=== PATIENT | male | born 1950 | race Caucasian/White ===

== ENCOUNTER 2017-06-23 09:25 | Observation (INO) | payer MEDICAID, OTHER ==
[~2017-06-23] VITALS: Ht 170.2 cm; Wt 69.9 kg
[~2017-06-23 09:25] MED LIST: ALLO300T46; AMLO-147; ASPI-664; CLOP75TA19; CYAN500T46; ESOM40CA; EZET1TAB44; FERR28TA; FURO40TA4; METF500T4; METO-53; MULT-342; NCN500CCR; POTA8TAB2; RAMI10CA35
[2017-06-23 10:02] VITALS: TEMP 98.1
[2017-06-23 10:30] LABS: BASOPHILS % 0.3 % (0.0-2.0); EOSINOPHILS % 0.3 % (0.0-7.0); HEMATOCRIT 34.4 % (42.0-52.0); HEMOGLOBIN 11.1 g/dl (14.0-18.0); LYMPHOCYTES # 0.6 10^3/ul (0.8-2.9); LYMPHOCYTES % 16.9 % (15.0-51.0); MEAN CORPUSCULAR HEMOGLOBIN 32.9 pg (29.0-33.0); MEAN CORPUSCULAR HGB CONC 32.3 g/dl (32.0-37.0); MEAN CORPUSCULAR VOLUME 102.1 fl (82.0-101.0); MEAN PLATELET VOLUME 11.1 fl (7.4-10.4); MONOCYTE # 0.4 10^3/ul (0.3-0.9); MONOCYTES % 11.4 % (0.0-11.0); NEUTROPHIL # 2.6 10^3/ul (1.6-7.5); NEUTROPHILS % 70.8 % (39.0-77.0); PLATELET COUNT 112 10^3/UL (140-415); RED BLOOD COUNT 3.37 10^6/ul (4.70-6.10); RED CELL DISTRIBUTION WIDTH 16.5 % (11.5-14.5); WHITE BLOOD COUNT 3.7 10^3/ul (4.8-10.8)
[2017-06-23] MEDS ORDERED: AZITHROMYCIN 500MG/NS (PMX) 250 ML IVPB ONE (10:30)
[2017-06-23] MEDS ORDERED: ALBUTEROL 0.083% (NEB) 2.5 MG/3 ML AMP HHN STA (10:30)
[2017-06-23] MEDS ORDERED: IPRATROPIUM (NEB) 0.5 MG/2.5 ML AMP HHN ONE (10:30)
[2017-06-23] MEDS ORDERED: CEFTRIAXONE 1 GM/50 ML (PMX) 50 ML IVPB ONE (10:30)
[2017-06-23 10:48] LABS: CALCIUM 9.1 mg/dl (8.4-10.2); CREATININE 1.6 mg/dl (0.61-1.24); POTASSIUM 5.1 mmol/L (3.5-5.1)
--- NOTE | 2017-06-23 10:50 | RADRPT ---
PROCEDURE: XR Chest. CLINICAL INDICATION: SOB TECHNIQUE: Frontal chest x-ray was obtained. COMPARISON: Chest x-ray September 14, :13 FINDINGS: There is cardiomegaly. Mediastinum is not widened. No hilar masses seen. There is mild central pulmo nary vascular congestion. No infiltrate is seen. There is no pleural effusion or pneumothorax. IMPRESSION: cardiomegaly with mild central pulmonary vascular congestion . .Garo Mccall MD, MD Date Time Electronically viewed and signed by .Garo Mccall MD, on 06/23/2017 10:49 .A/
[2017-06-23] MEDS ORDERED: ALLO300T2 PO (10:59)
[2017-06-23] MEDS ORDERED: METF-406 PO (10:59)
[2017-06-23] MEDS ORDERED: CARV25TA79 PO (10:59)
[2017-06-23] MEDS ORDERED: LORA0.5T PO (10:59)
[2017-06-23] MEDS ORDERED: CLOP75TA27 PO (11:00)
[2017-06-23] MEDS ORDERED: FURO20TA3 PO (11:00)
[2017-06-23] MEDS ORDERED: SIMV40TA2 PO (11:00)
[2017-06-23] MEDS ORDERED: BENA40TA41 PO (11:00)
[2017-06-23] MEDS ORDERED: NEO/5DRO22 RIGHT EYE (11:01)
[2017-06-23] MEDS ORDERED: ISOS30TA5 PO (11:01)
[2017-06-23] MEDS ORDERED: ASPI81TA3 PO (11:01)
[2017-06-23] MEDS ORDERED: POTA8TAB2 PO (11:01)
[2017-06-23] MEDS ORDERED: ESOM40CA PO (11:02)
[2017-06-23] MEDS ORDERED: OMEG1CAP2 PO (11:02)
--- NOTE | 2017-06-23 13:00 | RADRPT ---
PROCEDURE: CT Chest without contrast. CLINICAL INDICATION: Shortness of breath TECHNIQUE: CT scan of the chest without contrast was performed on a multidetector high-resolution CT scanner. Coronal and sagittal reformatted images were obtained from the axial source images. The total exam CTDI equals 11 mGy and the total exam DLP equals 478 mGy-cm. One or more of the followi ng dose reduction techniques were used: Automated exposure control, Adjustment of the mA and/or kV a ccording to patient size, and/or use of iterative reconstruction technique. DICOM images are availab le. COMPARISON: Chest x-ray earlier today FINDINGS: Small to moderate bilateral pleural effusions with compressive atelectasis of the lower lungs. Patchy micronodularity in the left upper lobe. Scattered clustered mediastinal lymph nodes. Marked cardiomegaly with small to moderate pericardial effusion. The visualized upper abdomen is grossly unremarkable. Degenerative changes to the thoracic spine are seen. Multinodular thyroid gland with thyroid calcifications. IMPRESSION: Small to moderate bilateral pleural effusions with compressive atelectasis of the lower lungs. Marked cardiomegaly with small to moderate pericardial effusion. Patchy micronodularity in the left upper lobe suggestive of superimposed infection/inflammation. Scattered clustered mediastinal lymph nodes are nonspecific but possibly reactive. RPTAT: AA .Joon Major MD, MD Date Time Electronically viewed and signed by .Joon Major MD, on 06/23/2017 12:59 .T/
[2017-06-23] MEDS ORDERED: HYDROCODONE/APAP (5/325) TAB PO PRN (13:30)
[2017-06-23] MEDS ORDERED: DOCUSATE SODIUM 100 MG CAP PO PRN (13:30)
[2017-06-23] MEDS ORDERED: LORAZEPAM 0.5 MG TAB PO PRN (13:30)
[2017-06-23] MEDS ORDERED: ONDANSETRON 4 MG INJ IV PRN ×2 (13:30)
[2017-06-23] MEDS ORDERED: FUROSEMIDE 40 MG INJ IV ONE (13:30)
[2017-06-23] MEDS ORDERED: NACL 0.9% 3 ML SYG IV SCH (13:30)
[2017-06-23] MEDS ORDERED: BISACODYL 10 MG SUPP PR PRN (13:30)
[2017-06-23] MEDS ORDERED: ACETAMINOPHEN 325 MG TAB PO PRN ×2 (13:30)
[2017-06-23] MEDS ORDERED: NITROGLYCERIN (SL) 0.4 MG TAB SL PRN (13:30)
[2017-06-23] MEDS ORDERED: MAGNESIUM HYDROXIDE 30ML CUP PO PRN (13:30)
--- NOTE | 2017-06-23 13:56 | ERD ---
ER Documentation Chief Complaint Chief Complaint COUGH X 3 WEEKS ,SOB, SEND BY PMD R/O PNA HPI Patient is a 67-year-old male with diabetes and hypertension as well as CHF who presents with cough for a few weeks. The patient saw Dr. Cr yesterday and had labs and a chest x-ray which showed pneumonia. The patient was sent to the hospital today for admission. The patient has had bilateral feet swelling for 1 month and is told he has a "weak heart". He was given penicillin yesterday. He admits to fevers. He has had no admissions in the last 3 months. ROS All systems reviewed and are negative except as per history of present illness. Medications Home Meds Reported Medications Esomeprazole Mag Trihydrate (Nexium) 40 Mg Capsule.dr, 40 MG PO DAILY, #30 CAP 06/23/17 [place]-3 Acid Ethyl Esters (Lovaza) 1 Gm Capsule, 2 GM PO DAILY, CAP 06/23/17 Neomycin/Polymyxin/Dexameth* (Maxitrol*) 5 Ml Drops, 2 DROP RIGHT EYE DAILY, EA 06/23/17 Aspirin* (Aspirin* Chew) 81 Mg Tab.chew, 81 MG PO DAILY, TAB.CHEW 06/23/17 Potassium Chloride* (Klor-Con*) 8 Meq Tablet.sa, 8 MEQ PO DAILY, TAB 06/23/17 Isosorbide Mononitrate* (Isosorbide Mononitrate*) 30 Mg Tab.er.24h, 30 MG PO DAILY, TAB 06/23/17 Clopidogrel Bisulfate (Clopidogrel) 75 Mg Tablet, 75 MG PO DAILY, #30 TAB 06/23/17 Benazepril Hcl* (Benazepril Hcl*) 40 Mg Tablet, 40 MG PO DAILY, #30 TAB 06/23/17 Furosemide* (Furosemide*) 20 Mg Tablet, 20 MG PO DAILY, #60 TAB 06/23/17 Simvastatin* (Zocor*) 40 Mg Tablet, 40 MG PO QHS, #30 TAB 06/23/17 Lorazepam* (Lorazepam*) 0.5 Mg Tablet, 0.5 MG PO HS Y for ANXIETY, TAB 06/23/17 Metformin Hcl* (Metformin Hcl* ER) 1,000 Mg Tab.er.24, 1000 MG PO DAILY, #30 TAB 06/23/17 Allopurinol* (Allopurinol*) 300 Mg Tablet, 300 MG PO DAILY, TAB 06/23/17 Carvedilol* (Carvedilol*) 25 Mg Tablet, 25 MG PO BID, #60 TAB 06/23/17 Discontinued Reported Medications Multivitamins W-Minerals (Icaps Plus) 1 Tab Tablet 11/25/10 Cyanocobalamin* (Vitamin B12*) 500 Mcg Tab 11/25/10 Clopidogrel Bisulfate (Plavix) 75 Mg Tablet 11/25/10 Potassium Chloride* (Klor-Con*) 8 Meq Tablet.sa 11/25/10 Ferrous Sulfate (Ferrous Sulfate) 1 Tab Tablet 11/25/10 Amlodipine Besylate* (Amlodipine Besylate*) 10 Mg Tablet 11/25/10 Metformin* (Glucophage*) 500 Mg Tab 11/02/10 Metoprolol (Lopressor) 50 Mg Tablet 11/02/10 Aspirin* (Aspirin* (EC)) 81 Mg Tablet. 11/02/10 Niacin* (Niaspan*) 500 Mg Tablet.sa 10/30/10 Furosemide* (Furosemide*) 40 Mg Tablet 10/30/10 Allopurinol* (Zyloprim*) 300 Mg Tablet 10/30/10 Esomeprazole Mag Trihydrate (Nexium) 40 Mg Capsule. 10/30/10 Ezetimibe-Simvastatin (Vytorin) 1 Tab Tablet 10/30/10 Ramipril (Altace) 10 Mg Capsule 10/30/10 Amlodipine Besylate* (Amlodipine Besylate*) 10 Mg Tablet 10/30/10 Allergies Allergies: Coded Allergies: No Known Allergy (Unverified , 06/23/17) PMhx/Soc History of Surgery: No Anesthesia Reaction: No Hx Neurological Disorder: No Hx Respiratory Disorders: No Hx Cardiac Disorders: Yes (Heart problems) Hx Psychiatric Problems: No Hx Miscellaneous Medical Probl: Yes (Diabetes ) Hx Alcohol Use: No Hx Substance Use: No Hx Tobacco Use: No Smoking Status: Never smoker FmHx Family History: diabetes Physical Exam Vitals Vital Signs Date Time Temp Pulse Resp B/P Pulse Ox O2 Delivery O2 Flow Rate FiO2 06/23/17 11:14 75 18 96 21 06/23/17 10:02 98.1 82 20 120/65 99 Room Air 06/23/17 09:27 98.1 78 20 120/65 99 Physical Exam Const: No acute distress Head: Atraumatic Eyes: Normal Conjunctiva ENT: Normal External Ears, Nose and Mouth. Neck: Full range of motion..~ No meningismus. Resp: Decreased breath sounds bilaterally Cardio: Regular rate and rhythm, no murmurs Abd: Soft, non tender, non distended. Normal bowel sounds Skin: No petechiae or rashes Back: No midline or flank tenderness Ext: 1 Plus pitting edema bilaterally Neur: Awake and alert Psych: Normal Mood and Affect Result Diagram: 06/23/17 1008 06/23/17 1008 Results 24 hrs Laboratory Tests Test 06/23/17 10:05 06/23/17 10:08 B-Type Natriuretic Peptide 12467QQ/ML White Blood Count 3.710^3/ul Red Blood Count 3.3710^6/ul Hemoglobin 11.1g/dl Hematocrit 34.4% Mean Corpuscular Volume 102.1fl Mean Corpuscular Hemoglobin 32.9pg Mean Corpuscular Hemoglobin Concent 32.3g/dl Red Cell Distribution Width 16.5% Platelet Count 81741^3/UL Mean Platelet Volume 11.1fl Neutrophils % 70.8% Lymphocytes % 16.9% Monocytes % 11.4% Eosinophils % 0.3% Basophils % 0.3% Nucleated Red Blood Cells % 0.0/100WBC Neutrophils # 2.610^3/ul Lymphocytes # 0.610^3/ul Monocytes # 0.410^3/ul Eosinophils # 0.010^3/ul Basophils # 0.010^3/ul Nucleated Red Blood Cells # 0.010^3/ul Sodium Level 141mmol/L Potassium Level 5.1mmol/L Chloride Level 104mmol/L Carbon Dioxide Level 26mmol/L Anion Gap 16 Blood Urea Nitrogen 44mg/dl Creatinine 1.60mg/dl Glucose Level 150mg/dl Lactic Acid Level 1.3mmol/L Calcium Level 9.1mg/dl Current Medications Medications (Trade) Dose Ordered Sig/Rob Route PRN Reason Start Time Stop Time Status Last Admin Dose Admin Ceftriaxone Sodium 50 ml @ 100 mls/hr ONCE ONCE IVPB 06/23/17 10:30 06/23/17 10:59 DC 06/23/17 10:21 Azithromycin (Zithromax 500mg/ NS (Pmx)) 250 ml @ 250 mls/hr ONCE ONCE IVPB 06/23/17 10:30 06/23/17 11:29 DC 06/23/17 11:02 Albuterol (Proventil 0.083% (Neb)) 5 mg ONCE STAT N 06/23/17 10:30 06/23/17 10:31 DC 06/23/17 11:12 Ipratropium [place] (Atrovent 0.02% (Neb)) 0.5 mg ONCE ONCE N 06/23/17 10:30 06/23/17 10:31 DC 06/23/17 11:12 Ondansetron HCl (Zofran Inj) 4 mg ER BRIDGE PRN IV NAUSEA AND/OR VOMITING 06/23/17 13:30 06/24/17 13:29 Acetaminophen (Tylenol Tab) 650 mg ER BRIDGE PRN PO MILD PAIN/FEVER 06/23/17 13:30 06/24/17 13:29 Furosemide (Lasix) 40 mg ONCE ONCE IV 06/23/17 13:30 06/23/17 13:31 DC Allopurinol (Zyloprim) 300 mg DAILY PO 06/24/17 09:00 UNV Aspirin (Aspirin) 81 mg DAILY PO 06/24/17 09:00 UNV Carvedilol (Coreg) 25 mg BID PO 06/23/17 21:00 UNV Clopidogrel Bisulfate (plaVIX) 75 mg DAILY PO 06/24/17 09:00 UNV Isosorbide Mononitrate (Imdur) 30 mg DAILY PO 06/24/17 09:00 UNV Lorazepam (Ativan) 0.5 mg HS PRN PO ANXIETY 06/23/17 13:30 UNV Neomycin/ Polymyxin/ Dexamethasone (Maxitrol Oph Susp) 2 drop DAILY RIGHT EYE 06/24/17 09:00 UNV Miscellaneous Information 40 mg DAILY PO 06/24/17 09:00 UNV Miscellaneous Information 2 gm DAILY PO 06/24/17 09:00 UNV Miscellaneous Information 40 mg QHS PO 06/23/17 21:00 UNV IV Flush (NS 3 ml) 3 ml PER PROTOCOL IV 06/23/17 13:30 UNV Ondansetron HCl (Zofran Inj) 4 mg Q6H PRN IV NAUSEA AND/OR VOMITING 06/23/17 13:30 UNV Furosemide (Lasix) 40 mg BID DIURETICS IV 06/24/17 06:00 UNV Nitroglycerin (Nitroglycerin (Sl Tab) 0.4 Mg) 1 tab Q5M PRN SL CHEST PAIN 06/23/17 13:30 UNV Acetaminophen (Tylenol Tab) 650 mg Q6H PRN PO PAIN LEVEL 1-3 OR FEVER 06/23/17 13:30 UNV Acetaminophen/ Hydrocodone Bitart ([place] (5/325)) 1 tab Q6H PRN PO PAIN LEVEL 4-6 06/23/17 13:30 UNV Docusate Sodium (Colace) 100 mg Q12H PRN PO CONSTIPATION 06/23/17 13:30 UNV Magnesium Hydroxide (Milk Of Mag) 30 ml DAILY PRN PO CONSTIPATION 06/23/17 13:30 UNV Bisacodyl (Dulcolax Supp) 10 mg DAILY PRN MS CONSTIPATION 06/23/17 13:30 UNV Enoxaparin Sodium (Lovenox) 40 mg DAILY SC 06/24/17 09:00 UNV Levofloxacin (Levaquin) 750 mg DAILY@06 GTB 06/24/17 06:00 UNV Miscellaneous Information (* Miscellaneous Pharmacy Order) Discontinue current oral sulfonylur... ONCE ONCE XX 06/23/17 14:00 06/23/17 14:01 UNV Diagnostic Test (Pha) (Accu-Chek) 1 ea 02 XX 06/24/17 02:00 UNV Miscellaneous Information (* Miscellaneous Pharmacy Order) HYPOGLYCEMIA PROTOCOL w... ONCE ONCE XX 06/23/17 14:00 06/23/17 14:01 UNV Insulin Aspart (Novolog Insulin Pen) NOVOLOG *MODERATE* ALGORITHM WITH MEALS BEDTIME SC 06/23/17 18:00 UNV Miscellaneous Information (* Miscellaneous Pharmacy Order) Discontinue all previ... ONCE ONCE XX 06/23/17 14:00 06/23/17 14:01 UNV Procedures/MDM EKG pending at this time. Chest x-ray shows possible pneumonia per radiology. CT chest shows pneumonia per radiology. Patient is a 67-year-old male who presents with shortness of breath. He was found to have both pneumonia and CHF. The patient will be admitted to a telemetry observation stay under the care of Dr. Negron from [facility]. The patient will be admitted to a telemetry bed. He was given ceftriaxone and Zithromax for community associated pneumonia. Lactic acid is normal at this point I doubt sepsis. Departure Diagnosis: Primary Impression: Pneumonia Pneumonia type: due to unspecified organism Laterality: unspecified laterality Lung location: unspecified part of lung Qualified Code: J18.9 - Pneumonia due to infectious organism, unspecified laterality, unspecified part of lung Additional Impressions: Shortness of breath CHF (congestive heart failure) Congestive heart failure type: unspecified congestive heart failure type Congestive heart failure chronicity: acute Qualified Code: I50.9 - Acute congestive heart failure, unspecified congestive heart failure type Condition: DANICA Vicente MD Jun 23, 2017 13:56
--- NOTE | 2017-06-23 14:52 | HP ---
Date/Time of Note Date/Time of Note DATE: 06/23/17 TIME: 14:37 Assessment/Plan VTE Prophylaxis VTE Prophylaxis Intervention: LMWH Assessment/Plan Assessment/Plan 67-year-old male with: 1. Respiratory distress secondary to CHF exacerbation and possible CAP, progressive over the past 2-4 weeks, patient denies cough, he has been afebrile. CT chest noncontrast showing mostly volume overload and also left upper lobe infiltrate that may be consistent with CAP Diuresis with Lasix, strict I/Os, daily weight Rule out acute coronary syndrome, Telemetry monitoring, 2D echocardiogram pending Levaquin for CAP 2. Possible community-acquired pneumonia with left upper lobe infiltrate on CAT scan of the chest, patient received Rocephin and azithromycin in the ER, will put on Levaquin with planned treatment for 7 days 3. Acute kidney injury on chronic kidney disease likely, renal function is fairly the same compared to admission in 2013, patient needs diuresis. We will continue to monitor his renal function while on Lasix. Check renal ultrasound. 4. Diabetes mellitus, episodes of hypoglycemia at home, DC metformin for now. Sliding scale insulin, check hemoglobin A1c in a.m. 5. Coronary artery disease, known ischemic cardiomyopathy and congestive heart failure with systolic dysfunction. Cardiac workup on this admission and repeat echocardiogram for further disease management. Continue outpatient medications for now 6. Congestive heart failure, systolic dysfunction with acute exacerbation. See #1 7. Hyperlipidemia: Check fasting lipid panel, continue statin therapy. 8. GERD: Continue PPI Prophylaxis: PPI for GI prophylaxis, Lovenox for DVT prophylaxis Disposition: Admit to telemetry observation, diuresis, monitor respiratory status, follow-up on 2D echocardiogram results, cardiology consult as needed. Son at bedside and patient have been updated regarding plan of care. HPI/ROS Admit Date/Time Admit Date/Time Hx of Present Illness Chief complaint: Shortness of breath History of presenting illness: This is a 67-year-old male with known coronary artery disease and ischemic cardiomyopathy, ejection fraction of 20% in 2013, diabetes mellitus, hyperlipidemia, hypertension who was sent to the emergency department by his primary care physician due to shortness of breath for the past 2 weeks. The patient's son is at the bedside and able to give additional information, patient himself reports shortness of breath over the past 2 weeks and according to the son he has been having some dyspnea on exertion and it decreased exercise tolerance for the past month. Patient denies any chest pain , nausea, vomiting, fevers. He even denies cough. However they have noted that he was having increasing lower extremity edema for the past 2-4 weeks. It is unclear if the patient is compliant with diet and salt intake. He seems to be more compliant with blood sugar check and his diabetes medication to a point where he is noted to have hypoglycemic events. He does have chronic kidney disease, he has seen a credit collection specialist recently and was told that his renal function was stable. He reports that he is furosemide was decreased down to 20 mg few months ago. He saw his outpatient atmospheric physicist 4 months ago and was told he was stable and to continue his current medications. On exam patient is found to be in volume overload with lower extremity edema. Chest x-ray at first was showing possible signs of congestive heart failure. BNP is elevated, CAT scan of the chest is showing pleural effusions and small to moderate pericardial effusion. Patient is being admitted to telemetry on observation for diuresis and further cardiac evaluation. He is CAT scan of the chest also showed a left upper lobe possible pneumonia, he will be maintained on antibiotics for community-acquired pneumonia. Patient denies any other cardiac symptoms, gastrointestinal symptoms, genitourinary symptoms. He denies palpitation or dizziness. ROS Constitutional: no complaints Eyes: no complaints ENT: no complaints Respiratory: shortness of breath Cardiovascular: edema, no complaints Gastrointestinal: no complaints Genitourinary: no complaints Musculoskeletal: no complaints Neurologic: no complaints Lymphatic: no complaints Psychological: no complaints PMH/Family/Social Past Medical History Ischemic cardiomyopathy, ejection fraction in 2013 was 20% Medical History: congestive heart failure (Systolic dysfunction), coronary artery disease, diabetes, high cholesterol, hypertension Past Surgical History Status post angiogram with stenting 15-17 years ago Status post angioplasty in 2013, no stent Family History Significant Family History: no pertinent family hx Social History Alcohol Use: none Smoking Status: Never smoker Drug Use: none Exam/Review of Systems Vital Signs Vitals Vital Signs Date Time Temp Pulse Resp B/P Pulse Ox O2 Delivery O2 Flow Rate FiO2 06/23/17 11:14 75 18 96 21 06/23/17 10:02 98.1 120/65 Room Air Exam Constitutional: alert, oriented, well developed Psych: no complaints Head: atraumatic, normocephalic Eyes: nl conjunctiva Neck: supple Respiratory: diminished breath sounds (Bilateral lower lobes), normal air movement Cardiovascular: nl pulses, regular rate and rhythm Gastrointestinal: non-tender, soft Musculoskeletal: nl extremities to inspection, nl gait and stance Extremities: normal pulses, other (+2 pitting edema bilateral lower extremities up to the knees at least) Neurological: PRODUCTION DESIGNER II-XII intact, nl mental status, nl speech, other (Strength not assessed but moving all 4 extremities while in bed.) Labs Result Diagram: 06/23/17 1008 06/23/17 1008 Medications Medications Current Medications Allopurinol (Zyloprim) 300 mg DAILY PO ; Start 06/24/17 at 09:00; Status UNV Aspirin (Aspirin) 81 mg DAILY PO ; Start 06/24/17 at 09:00; Status UNV Carvedilol (Coreg) 25 mg BID PO ; Start 06/23/17 at 21:00; Status UNV Clopidogrel Bisulfate (plaVIX) 75 mg DAILY PO ; Start 06/24/17 at 09:00; Status UNV Isosorbide Mononitrate (Imdur) 30 mg DAILY PO ; Start 06/24/17 at 09:00; Status UNV Lorazepam (Ativan) 0.5 mg HS PRN PO ANXIETY; Start 06/23/17 at 13:30; Status UNV Neomycin/ Polymyxin/ Dexamethasone (Maxitrol Oph Susp) 2 drop DAILY RIGHT EYE ; Start 06/24/17 at 09:00; Status UNV Miscellaneous Information 40 mg DAILY PO ; Start 06/24/17 at 09:00; Status UNV Miscellaneous Information 2 gm DAILY PO ; Start 06/24/17 at 09:00; Status UNV Miscellaneous Information 40 mg QHS PO ; Start 06/23/17 at 21:00; Status UNV Ondansetron HCl (Zofran Inj) 4 mg Q6H PRN IV NAUSEA AND/OR VOMITING; Start at 13:30; Status UNV Nitroglycerin (Nitroglycerin (Sl Tab) 0.4 Mg) 1 tab Q5M PRN SL CHEST PAIN; Start 06/23/17 at 13:30; Status UNV Acetaminophen (Tylenol Tab) 650 mg Q6H PRN PO PAIN LEVEL 1-3 OR FEVER; Start 06/23/17 at 13:30; Status UNV Acetaminophen/ Hydrocodone Bitart ([place] (5/325)) 1 tab Q6H PRN PO PAIN LEVEL 4 -6; Start 06/23/17 at 13:30; Status UNV Docusate Sodium (Colace) 100 mg Q12H PRN PO CONSTIPATION; Start 06/23/17 at 13 :30; Status UNV Magnesium Hydroxide (Milk Of Mag) 30 ml DAILY PRN PO CONSTIPATION; Start 06/23 at 13:30; Status UNV Bisacodyl (Dulcolax Supp) 10 mg DAILY PRN IN CONSTIPATION; Start 06/23/17 at 13:30; Status UNV Enoxaparin Sodium (Lovenox) 40 mg DAILY SC ; Start 06/24/17 at 09:00; Status UNV Levofloxacin (Levaquin) 750 mg DAILY@06 GTB ; Start 06/24/17 at 06:00; Status UNV Miscellaneous Information (* Miscellaneous Pharmacy Order) Discontinue current oral sulfonylur... ONCE ONCE XX ; Start 06/23/17 at 14:00; Stop 06/23/17 at 14:01; Status UNV Diagnostic Test (Pha) (Accu-Chek) 1 ea 02 XX ; Start 06/24/17 at 02:00; Status UNV Miscellaneous Information (* Miscellaneous Pharmacy Order) HYPOGLYCEMIA PROTOCOL w... ONCE ONCE XX ; Start 06/23/17 at 14:00; Stop 06/23/17 at 14:01 ; Status UNV Miscellaneous Information (* Miscellaneous Pharmacy Order) Discontinue all previ... ONCE ONCE XX ; Start 06/23/17 at 14:00; Stop 06/23/17 at 14:01; Status UNV Procedures Procedures PROCEDURE: XR Chest. CLINICAL INDICATION: SOB TECHNIQUE: Frontal chest x-ray was obtained. COMPARISON: Chest x-ray September 14, :13 FINDINGS: There is cardiomegaly. Mediastinum is not widened. No hilar masses seen. There is mild central pulmonary vascular congestion. No infiltrate is seen. There is no pleural effusion or pneumothorax. IMPRESSION: cardiomegaly with mild central pulmonary vascular congestion . .Garo Mccall MD, Date Time Electronically viewed and signed by .Garo Mccall MD, MD on 06/23/2017 10: 49 PROCEDURE: CT Chest without contrast. CLINICAL INDICATION: Shortness of breath TECHNIQUE: CT scan of the chest without contrast was performed on a multidetector high-resolution CT scanner. Coronal and sagittal reformatted images were obtained from the axial source images. The total exam CTDI equals 11 mGy and the total exam DLP equals 478 mGy-cm. One or more of the following dose reduction techniques were used: Automated exposure control, Adjustment of the mA and/or kV according to patient size, and/or use of iterative reconstruction technique. DICOM images are available. COMPARISON: Chest x-ray earlier today FINDINGS: Small to moderate bilateral pleural effusions with compressive atelectasis of the lower lungs. Patchy micronodularity in the left upper lobe. Scattered clustered mediastinal lymph nodes. Marked cardiomegaly with small to moderate pericardial effusion. The visualized upper abdomen is grossly unremarkable. Degenerative changes to the thoracic spine are seen. Multinodular thyroid gland with thyroid calcifications. IMPRESSION: Small to moderate bilateral pleural effusions with compressive atelectasis of the lower lungs. Marked cardiomegaly with small to moderate pericardial effusion. Patchy micronodularity in the left upper lobe suggestive of superimposed infection/inflammation. Scattered clustered mediastinal lymph nodes are nonspecific but possibly reactive. RPTAT: AA .Joon Major MD, Date Time Electronically viewed and signed by .Joon Major MD, on 06/23/2017 12:59 JUAN BERNAL Jun 23, 2017 14:52
[2017-06-23] MEDS ORDERED: DEXTROSE 50% 50 ML SYRINGE IV PRN ×2 (15:00)
[2017-06-23] MEDS ORDERED: GLUCAGON 1 MG INJ IM PRN (15:00)
[2017-06-23] MEDS ORDERED: GLUCOSE GEL 15 GRAM TUBE PO PRN ×2 (15:00)
[2017-06-23] MEDS ORDERED: GLUCOSE GEL 15 GRAM TUBE BUCCAL PRN (15:00)
[2017-06-23 15:41] LABS: CK-MB 1.16 ng/ml (0.0-2.4); TROPONIN-I 0.052 ng/ml (0.00-0.12)
--- NOTE | 2017-06-23 15:44 | RADRPT ---
Echocardiogram Report Patient Name: FILIPPO YANG Gender: Male Date: 1950 Study Date: 23-Jun-2017 Breeder Hen Service Technician: Peter Andres [facility] Location: [facility] Ref. Physician: AMADA BERNAL Quality: Adequate Procedures: Transthoracic echocardiogram with complete 2D, M-Mode, and doppler examination. Indications: Evaluate Left Ventricular function and r/o pericardial effusion. 2D/M Mode Doppler Measurement Value Normal Ranges Measurement Value Normal Ranges LVIDd 2D 7.1 3.5 - 5.6 cm AV Peak Linden 1.5 m/sec LVIDs 2D 6.0 2.1 - 4.1 cm AV Peak PG 9.0 mmHg FS 2D 16.0 % LVOT Peak Linden 0.6 m/sec LVPWd 2D 1.3 0.6 - 1.1 cm LVOT Peak PG 1.0 mmHg IVSd 2D 1.3 0.6 - 1.1 cm MV E Peak Linden 1.5 m/sec IVS/LVPW 2D 1.0 MV A Peak Linden 1.0 m/sec AoR Diam 2D 2.6 2.0 - 3.7 cm MV E/A 1.5 LA/Ao 2D 2 0 - 1 MV Decel Time 144 msec EDV 2D 361.0 cm3 MV E/A 1.5 ESV 2D 214.0 cm3 MR Peak PG 110.0 mmHg LA Dimen 2D 6.2 2.3 - 4.0 cm MR Peak Linden 5.2 m/sec TR Peak Linden 4.4 m/sec TR Peak PG 79.0 mmHg RVSP 87.0 mmHg Findings Left Ventricle: Mild concentric left ventricular hypertrophy. Severe enlargement of left ventricle cavity. Moderate to severe global left ventricular systolic dysfunction. Ejection fraction is visually estimated at 30 %. Abnormal Diastolic Function. Right Ventricle: Normal right ventricular systolic function. Moderate enlargement of right ventricle. Left Atrium: There is severe enlargement of left atrium. Right Atrium: There is moderate enlargement of right atrium. Mitral Valve: Mild mitral leaflet calcification. Mild mitral annular calcification. Moderate to severe mitral valve regurgitation. The regurgitation jet is eccentrically directed which may underestimate the severity of mitral regurgitation. Aortic Valve: Aortic sclerosis without stenosis. Mild aortic valve regurgitation. Tricuspid Valve: Normal appearance of the tricuspid valve. Estimated peak PA systolic pressure 87 mmHg. There is moderate tricuspid regurgitation. Pulmonic Valve: Pulmonic valve not well visualized. There is trace pulmonic regurgitation. Pericardium: Trivial pericardial effusion. Pleural effusion seen. Aorta: Normal aortic root. IVC: Dilated inferior vena cava with poor inspiratory collapse consistent with elevated right atrial pressures. Conclusions 1.Mild concentric left ventricular hypertrophy. Severe enlargement of left ventricle cavity. Moderate to severe global left ventricular systolic dysfunction. Ejection fraction is visually estimated at 30 %. Abnormal Diastolic Function. 2.Normal right ventricular systolic function. Moderate enlargement of right ventricle. 3.There is severe enlargement of left atrium. 4.There is moderate enlargement of right atrium. 5.Moderate to severe mitral valve regurgitation. The regurgitation jet is eccentrically directed which may underestimate the severity of mitral regurgitation. 6.Aortic sclerosis without stenosis. Mild aortic valve regurgitation. 7.Estimated peak PA systolic pressure 87 mmHg. There is moderate tricuspid regurgitation. 8.Trivial pericardial effusion. Pleural effusion seen. Electronically Signed By: Rupesh Fritz 23-Jun-2017 15:44:08 -0800 Patient Name: FILIPPO YANG Study Date: 23-Jun-2017 [id number]
--- NOTE | 2017-06-23 17:29 | RADRPT ---
PROCEDURE: Renal US. CLINICAL INDICATION: Renal dysfunction. TECHNIQUE: Multiple sonographic images of the kidneys and urinary bladder were obtained. The imag es were reviewed on a PACS workstation. COMPARISON: No prior studies are available for comparison. FINDINGS: The right kidney measures 10.8 x 4.6 x 5.3 cm. The left kidney measures 11.6 x 4.6 x 4.7 cm. There is no solid renal mass. There is a benign cyst superiorly in the right kidney measuring 1.4 cm and a benign cyst inferiorly in the right kidney measuring 5.1 cm. There is a benign cyst superiorl y in the left kidney measuring 1.1 cm. There is no hydronephrosis. There is no renal calculus. Renal parenchymal thickness is normal bilaterally. Both kidneys are hyperechoic consistent with medical renal disease. The perirenal regions are normal with no fluid collection or mass. The urinary bladder is distended but otherwise unremarkable. IMPRESSION: 1. Benign bilateral renal cysts. 2. Bilateral hyperechoic kidneys consistent with medical renal disease. 3. Distended urinary bladder. 4. Otherwise normal renal ultrasound. RPTAT: QQ .Gelacio Lorenzo MD, MD Date Time Electronically viewed and signed by .Gelacio Lorenzo MD, on 06/23/2017 17:29 .R/
[2017-06-23] MEDS ORDERED: LEVOFLOXACIN 750 MG TABLET GTB SCH (18:30)
[2017-06-23 19:44] VITALS: Ht 170.2 cm; Wt 69.9 kg
[2017-06-23 19:45] VITALS: BP 119/73; PULSE 76; RESP 22
[2017-06-23 20:00] VITALS: BP 119/93; PULSE 83; RESP 17
[2017-06-23] MEDS: INSULIN ASPART [NOVOLOG] 3 ML PEN SC SCH (21:00)
[2017-06-23] MEDS: ATORVASTATIN 20 MG TAB PO SCH (21:30)
[2017-06-23 21:37] VITALS: PULSE 84
[2017-06-23 22:16] LABS: TROPONIN-I 0.06 ng/ml (0.00-0.12)
[2017-06-24] VITALS (10 sets, daily range): BP systolic 108–124; BP diastolic 62–67; PULSE 61–90; RESP 16–17
[2017-06-24] MEDS: ACCU-CHEK XX SCH (02:00)
[2017-06-24] MEDS: FUROSEMIDE 40 MG INJ IV SCH ×2 (05:38→17:26)
[2017-06-24] MEDS: PANTOPRAZOLE (EC) 40 MG TAB PO SCH (05:38)
[2017-06-24 07:30] LABS: BASOPHILS % 0.3 % (0.0-2.0); EOSINOPHILS # 0.1 10^3/ul (0.0-0.5); EOSINOPHILS % 1.4 % (0.0-7.0); HEMATOCRIT 35.5 % (42.0-52.0); HEMOGLOBIN 11.4 g/dl (14.0-18.0); LYMPHOCYTES # 0.8 10^3/ul (0.8-2.9); LYMPHOCYTES % 21.7 % (15.0-51.0); MEAN CORPUSCULAR HEMOGLOBIN 32.9 pg (29.0-33.0); MEAN CORPUSCULAR HGB CONC 32.1 g/dl (32.0-37.0); MEAN CORPUSCULAR VOLUME 102.3 fl (82.0-101.0); MEAN PLATELET VOLUME 11.4 fl (7.4-10.4); MONOCYTE # 0.5 10^3/ul (0.3-0.9); MONOCYTES % 14.4 % (0.0-11.0); NEUTROPHIL # 2.2 10^3/ul (1.6-7.5); NEUTROPHILS % 61.9 % (39.0-77.0); PLATELET COUNT 113 10^3/UL (140-415); RED BLOOD COUNT 3.47 10^6/ul (4.70-6.10); RED CELL DISTRIBUTION WIDTH 16.9 % (11.5-14.5); WHITE BLOOD COUNT 3.6 10^3/ul (4.8-10.8)
[2017-06-24] MEDS: INSULIN ASPART [NOVOLOG] 3 ML PEN SC SCH ×4 (08:00→20:14)
[2017-06-24 08:13] LABS: ALBUMIN/GLOBULIN RATIO 1.11; BILIRUBIN,INDIRECT 0.6 mg/dl (0-1.1); BILIRUBIN,TOTAL 0.6 mg/dl (0.2-1.3); CHOL/HDL RATIO 3.9 RATIO; CREATININE 1.56 mg/dl (0.61-1.24); MAGNESIUM 1.7 mg/dl (1.7-2.5); TOTAL PROTEIN 5.7 g/dl (6.1-8.1)
[2017-06-24 08:15] LABS: TROPONIN-I 0.061 ng/ml (0.00-0.12)
[2017-06-24 08:16] LABS: CK-MB 1.07 ng/ml (0.0-2.4)
[2017-06-24] MEDS: NEOMYC/POLYMYX/DEXAMETH OPH 5 ML RIGHT EYE SCH ×2 (09:00→17:44)
[2017-06-24] MEDS: FISH OIL 1,000 MG CAP PO SCH (09:10)
[2017-06-24] MEDS: ALLOPURINOL 300 MG TAB PO SCH (09:10)
[2017-06-24] MEDS: CLOPIDOGREL 75 MG TAB PO SCH (09:10)
[2017-06-24] MEDS: ISOSORBIDE MONONITRATE(SR)30 MG TAB PO SCH (09:10)
[2017-06-24] MEDS: ASPIRIN 81 MG TAB PO SCH (09:11)
[2017-06-24] MEDS: ENOXAPARIN 40 MG/0.4 ML SYG SC SCH (09:12)
--- NOTE | 2017-06-24 10:53 | PN ---
Date/Time of Note Date/Time of Note DATE: 06/24/17 TIME: 10:44 Assessment/Plan VTE Prophylaxis VTE Prophylaxis Intervention: SCD's Lines/Catheters IV [facility] Urinary Cath still in place: No Assessment/Plan Assessment/Plan 67-year-old male with: 1. Respiratory distress secondary to CHF exacerbation and possible CAP, progressive over the past 2-4 weeks, Appreciate additional information from cardiology, 2D echocardiogram showing moderate to severe mitral regurgitation and apparently the patient has been on medical management after being evaluated at [facility] approximately 4 years ago. Ejection fraction is slightly improved to stable, EF is 30%. Patient diuresing well with stable renal function, will continue medical management. Levaquin for CAP 2. Possible community-acquired pneumonia with left upper lobe infiltrate on CAT scan of the chest. Plan for 7 days of Levaquin. 3. Chronic kidney disease stage III, renal ultrasound showing signs of chronic medical disease, creatinine seems to be around 1.6 at baseline. Continue diuresis with Lasix IV with plan to switch to p.o. by tomorrow for discharge planning. 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 4. Diabetes mellitus, episodes of hypoglycemia at home, DC metformin given renal disease, will switch to Tradjenta, continue sliding scale insulin. A1c 6.0. 5. Coronary artery disease and severe mitral valve disease with moderate to severe mitral regurgitation, known cardiomyopathy and congestive heart failure with systolic dysfunction, EF 30%. TFTs within normal Continue current medications. 6. Congestive heart failure, systolic dysfunction, EF 30% and moderate to severe mitral regurgitation. See #1 7. Hyperlipidemia: continue statin therapy. Fasting lipid panel within normal 8. GERD: Continue PPI Prophylaxis: PPI for GI prophylaxis, Lovenox for DVT prophylaxis Disposition: Keep on telemetry observation, discharge planning tomorrow 06/25, with outpatient follow-up with cardiology and nephrology Doppler lower extremity and repeat chest x-ray pending today. Subjective 24 Hr Interval Summary Free Text/Dictation Patient feels better this morning, he remains in sinus rhythm. Discussed with cardiology, apparently the patient does have severe mitral regurgitation and was declined for surgery at [facility] 4 years ago. Ejection fraction is 30% which is fairly unchanged, remains in sinus rhythm, he does have heart failure again with valvular disease, he is being diuresed. Exam/Review of Systems Vital Signs Vitals Vital Signs Date Time Temp Pulse Resp B/P Pulse Ox O2 Delivery O2 Flow Rate FiO2 06/24/17 08:09 90 06/24/17 07:59 98.5 17 124/67 97 06/23/17 20:00 Nasal Cannula 2.0 06/23/17 11:14 21 Intake and Output 06/23/17 06/23/17 06/24/17 15:00 23:00 07:00 Intake Total 220 ml 180 ml Balance 220 ml 180 ml Exam Constitutional: alert, oriented, well developed Respiratory: diminished breath sounds (Bases bilaterally), normal air movement Cardiovascular: nl pulses, regular rate and rhythm Gastrointestinal: non-tender, soft Musculoskeletal: nl extremities to inspection Extremities: edema (+1 edema left lower extremity, trace edema right lower extremity), normal pulses 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, nl mental status, nl speech, nl strength Results Result Diagram: 06/24/17 0701 06/24/17 0701 Results 24 hrs Laboratory Tests Test 06/23/17 13:45 06/23/17 14:50 06/23/17 15:00 06/23/17 15:12 Lactic Acid Level 1.3 1.3 Magnesium Level 1.8 Creatine Kinase 54 Creatine Kinase Index 2.1 Creatinine Kinase MB (Mass) 1.16 Troponin I 0.052 Bedside Glucose 127 Test 06/23/17 19:31 06/23/17 21:03 06/23/17 21:28 06/24/17 07:01 Bedside Glucose 136 145 Creatine Kinase 45 37 Creatine Kinase Index 2.2 2.9 Creatinine Kinase MB (Mass) 1.00 1.07 Troponin I 0.060 0.061 White Blood Count 3.6 L Red Blood Count 3.47 L Hemoglobin 11.4 L Hematocrit 35.5 L Mean Corpuscular Volume 102.3 H Mean Corpuscular Hemoglobin 32.9 Mean Corpuscular Hemoglobin Concent 32.1 Red Cell Distribution Width 16.9 H Platelet Count 113 L Mean Platelet Volume 11.4 H Neutrophils % 61.9 Lymphocytes % 21.7 Monocytes % 14.4 H Eosinophils % 1.4 Basophils % 0.3 Nucleated Red Blood Cells % 0.0 Neutrophils # 2.2 Lymphocytes # 0.8 Monocytes # 0.5 Eosinophils # 0.1 Basophils # 0.0 Nucleated Red Blood Cells # 0.0 Sodium Level 143 Potassium Level 4.0 Chloride Level 106 Carbon Dioxide Level 29 Anion Gap 12 Blood Urea Nitrogen 44 H Creatinine 1.56 H Glucose Level 107 # Hemoglobin A1c 6.0 H Calcium Level 9.0 Magnesium Level 1.7 Total Bilirubin 0.6 Direct Bilirubin 0.00 Indirect Bilirubin 0.6 Aspartate Amino Transf (AST/SGOT) 23 Alanine Aminotransferase (ALT/SGPT) 33 Alkaline Phosphatase 109 Total Protein 5.7 L Albumin 3.0 L Globulin 2.70 Albumin/Globulin Ratio 1.11 Triglycerides Level 83 Cholesterol Level 115 LDL Cholesterol, Calculated 69 HDL Cholesterol 29 L Cholesterol/HDL Ratio 3.9 Thyroid Stimulating Hormone (TSH) Pending Free Thyroxine 1.71 Test 06/24/17 08:24 Bedside Glucose 106 Imaging Free Text/Dictation PROCEDURE: Renal US. CLINICAL INDICATION: Renal dysfunction. TECHNIQUE: Multiple sonographic images of the kidneys and urinary bladder were obtained. The images were reviewed on a PACS workstation. COMPARISON: No prior studies are available for comparison. FINDINGS: The right kidney measures 10.8 x 4.6 x 5.3 cm. The left kidney measures 11.6 x 4.6 x 4.7 cm. There is no solid renal mass. There is a benign cyst superiorly in the right kidney measuring 1.4 cm and a benign cyst inferiorly in the right kidney measuring 5.1 cm. There is a benign cyst superiorly in the left kidney measuring 1.1 cm. There is no hydronephrosis. There is no renal calculus. Renal parenchymal thickness is normal bilaterally. Both kidneys are hyperechoic consistent with medical renal disease. The perirenal regions are normal with no fluid collection or mass. The urinary bladder is distended but otherwise unremarkable. IMPRESSION: 1. Benign bilateral renal cysts. 2. Bilateral hyperechoic kidneys consistent with medical renal disease. 3. Distended urinary bladder. 4. Otherwise normal renal ultrasound. RPTAT: QQ .Gelacio Lorenzo MD, MD Date Time Electronically viewed and signed by .Gelacio Lorenzo MD, on 06/23/2017 17:29 Medications Medications Current Medications Allopurinol (Zyloprim) 300 mg DAILY PO Last administered on 06/24/17 09:10; Admin Dose 300 MG; Start 06/24/17 at 09:00 Aspirin (Aspirin) 81 mg DAILY PO Last administered on 06/24/17 09:11; Admin Dose 81 MG; Start 06/24/17 at 09:00 Carvedilol (Coreg) 25 mg BID PO Last administered on 06/24/17 09:13; Admin Dose 25 MG; Start 06/23/17 at 21:00 Clopidogrel Bisulfate (plaVIX) 75 mg DAILY PO Last administered on 06/24/17 09:10; Admin Dose 75 MG; Start 06/24/17 at 09:00 Isosorbide Mononitrate (Imdur) 30 mg DAILY PO Last administered on 06/24/17 09:10; Admin Dose 30 MG; Start 06/24/17 at 09:00 Lorazepam (Ativan) 0.5 mg HS PRN PO ANXIETY; Start 06/23/17 at 13:30 Neomycin/ Polymyxin/ Dexamethasone (Maxitrol Oph Susp) 2 drop DAILY RIGHT EYE ; Start 06/24/17 at 09:00 Pantoprazole (Protonix Tab) 40 mg DAILY@06 PO Last administered on 06/24/17 05:38; Admin Dose 40 MG; Start 06/24/17 at 06:00 Fish Oil (Fish Oil) 2,000 mg DAILY PO Last administered on 06/24/17 09:10; Admin Dose 2,000 MG; Start 06/24/17 at 09:00 Atorvastatin Calcium (Lipitor) 20 mg DAILY@21 PO Last administered on 21:30; Admin Dose 20 MG; Start 06/23/17 at 21:00 Ondansetron HCl (Zofran Inj) 4 mg Q6H PRN IV NAUSEA AND/OR VOMITING; Start at 13:30 Nitroglycerin (Nitroglycerin (Sl Tab) 0.4 Mg) 1 tab Q5M PRN SL CHEST PAIN; Start 06/23/17 at 13:30 Acetaminophen (Tylenol Tab) 650 mg Q6H PRN PO PAIN LEVEL 1-3 OR FEVER; Start 06/23/17 at 13:30 Acetaminophen/ Hydrocodone Bitart ([place] (5/325)) 1 tab Q6H PRN PO PAIN LEVEL 4 -6; Start 06/23/17 at 13:30 Docusate Sodium (Colace) 100 mg Q12H PRN PO CONSTIPATION; Start 06/23/17 at 13 :30 Magnesium Hydroxide (Milk Of Mag) 30 ml DAILY PRN PO CONSTIPATION; Start 06/23 at 13:30 Bisacodyl (Dulcolax Supp) 10 mg DAILY PRN GA CONSTIPATION; Start 06/23/17 at 13:30 Enoxaparin Sodium (Lovenox) 40 mg DAILY SC Last administered on 06/24/17 09: 12; Admin Dose 40 MG; Start 06/24/17 at 09:00 Levofloxacin (Levaquin) 750 mg Q48H GTB Last administered on 06/23/17 21:30; Admin Dose 750 MG; Start 06/23/17 at 18:30 Diagnostic Test (Pha) (Accu-Chek) 1 ea 02 XX ; Start 06/24/17 at 02:00 Miscellaneous Information 1 ea NOTE XX ; Start 06/23/17 at 15:00 Glucose (Glutose) 15 gm Q15M PRN PO DECREASED GLUCOSE; Start 06/23/17 at 15:00 Glucose (Glutose) 22.5 gm Q15M PRN PO DECREASED GLUCOSE; Start 06/23/17 at 15: 00 Dextrose (D50w Syringe) 25 ml Q15M PRN IV DECREASED GLUCOSE; Start 06/23/17 at 15:00 Dextrose (D50w Syringe) 50 ml Q15M PRN IV DECREASED GLUCOSE; Start 06/23/17 at 15:00 Glucagon (Glucagen) 1 mg Q15M PRN IM DECREASED GLUCOSE; Start 06/23/17 at 15: 00 Glucose (Glutose) 15 gm Q15M PRN BUCCAL DECREASED GLUCOSE; Start 06/23/17 at 15:00 Influenza Virus Vaccine (Fluzone) 0.5 ml ONCE ONCE IM* ; Start 06/25/17 at 09:00 ; Stop 06/25/17 at 09:01 Procedures Procedures Echocardiogram Report Patient Name: FILIPPO YANG Gender: Male Date: 1950 Study Date: 23-Jun-2017 Psych Assistant: Peter Andres RDCS Location: [facility] Ref. Physician: GABE, N`DEYE Quality: Adequate Procedures: Transthoracic echocardiogram with complete 2D, M-Mode, and doppler examination. Indications: Evaluate Left Ventricular function and r/o pericardial effusion. 2D/M Mode Doppler Measurement Value Normal Ranges Measurement Value Normal Ranges LVIDd 2D 7.1 3.5 - 5.6 cm AV Peak Linden 1.5 m/sec LVIDs 2D 6.0 2.1 - 4.1 cm AV Peak PG 9.0 mmHg FS 2D 16.0 % LVOT Peak Linden 0.6 m/sec LVPWd 2D 1.3 0.6 - 1.1 cm LVOT Peak PG 1.0 mmHg IVSd 2D 1.3 0.6 - 1.1 cm MV E Peak Linden 1.5 m/sec IVS/LVPW 2D 1.0 MV A Peak Linden 1.0 m/sec AoR Diam 2D 2.6 2.0 - 3.7 cm MV E/A 1.5 LA/Ao 2D 2 0 - 1 MV Decel Time 144 msec EDV 2D 361.0 cm3 MV E/A 1.5 ESV 2D 214.0 cm3 MR Peak PG 110.0 mmHg LA Dimen 2D 6.2 2.3 - 4.0 cm MR Peak Linden 5.2 m/sec TR Peak Linden 4.4 m/sec TR Peak PG 79.0 mmHg RVSP 87.0 mmHg Findings Left Ventricle: Mild concentric left ventricular hypertrophy. Severe enlargement of left ventricle cavity. Moderate to severe global left ventricular systolic dysfunction. Ejection fraction is visually estimated at 30 %. Abnormal Diastolic Function. Right Ventricle: Normal right ventricular systolic function. Moderate enlargement of right ventricle. Left Atrium: There is severe enlargement of left atrium. Right Atrium: There is moderate enlargement of right atrium. Mitral Valve: Mild mitral leaflet calcification. Mild mitral annular calcification. Moderate to severe mitral valve regurgitation. The regurgitation jet is eccentrically directed which may underestimate the severity of mitral regurgitation. Aortic Valve: Aortic sclerosis without stenosis. Mild aortic valve regurgitation. Tricuspid Valve: Normal appearance of the tricuspid valve. Estimated peak PA systolic pressure 87 mmHg. There is moderate tricuspid regurgitation. Pulmonic Valve: Pulmonic valve not well visualized. There is trace pulmonic regurgitation. Pericardium: Trivial pericardial effusion. Pleural effusion seen. Aorta: Normal aortic root. IVC: Dilated inferior vena cava with poor inspiratory collapse consistent with elevated right atrial pressures. Conclusions 1. Mild concentric left ventricular hypertrophy. Severe enlargement of left ventricle cavity. Moderate to severe global left ventricular systolic dysfunction. Ejection fraction is visually estimated at 30 %. Abnormal Diastolic Function. 2. Normal right ventricular systolic function. Moderate enlargement of right ventricle. 3. There is severe enlargement of left atrium. 4. There is moderate enlargement of right atrium. 5. Moderate to severe mitral valve regurgitation. The regurgitation jet is eccentrically directed which may underestimate the severity of mitral regurgitation. 6. Aortic sclerosis without stenosis. Mild aortic valve regurgitation. 7. Estimated peak PA systolic pressure 87 mmHg. There is moderate tricuspid regurgitation. 8. Trivial pericardial effusion. Pleural effusion seen. Electronically Signed By: Rupesh Fritz 23-Jun-2017 15:44:08 -0800 JUAN BERNAL Jun 24, 2017 10:53
--- NOTE | 2017-06-24 12:48 | RADRPT ---
PROCEDURE: US bilateral lower extremity veins. CLINICAL INDICATION: Bilateral leg pain and swelling. TECHNIQUE: Multiple longitudinal and transverse images of the bilateral lower extremity veins were obtained with grace scale and color Doppler imaging. The common femoral vein, femoral vein, and popl iteal vein were evaluated. 2D grayscale measurements with compression sonography, color Doppler, and pulsed Doppler with augmentation. COMPARISON: No prior studies are available for comparison. FINDINGS: The bilateral common femoral, femoral and popliteal veins are normally compressible throughout. Col or flow demonstrates normal filling of the vessels. Normal waveforms are visualized and there is no rmal response to augmentation. There is reflux in the right popliteal vein. IMPRESSION: 1. No evidence of deep vein thrombosis involving either lower extremity. 2. Reflux in the right popliteal vein. RPTAT: QQ .Gelacio Lorenzo MD, Date Time Electronically viewed and signed by .Gelacio Lorenzo MD, on 06/24/2017 12:48 .R/
[2017-06-24 13:11] LABS: THYROID STIMULATING HORMONE 0.51 MIU/L (0.465-4.680)
[2017-06-24] MEDS: ATORVASTATIN 20 MG TAB PO SCH (20:15)
--- NOTE | 2017-06-24 23:19 | RADRPT ---
PROCEDURE: XR Chest. CLINICAL INDICATION: Pulmonary edema. TECHNIQUE: PA and Lateral views of the chest were obtained. COMPARISON: Chest radiograph dated June 23, 2017. FINDINGS: There is stable cardiomegaly. Aortic calcifications are present. There is mild pulmonary vascular congestion, decreased when compared to prior examination. There is a small left pleural effusion. No focal consolidation or pneumothorax is seen. Degenerative changes of the spine and shoulder joints are present. IMPRESSION: 1. Mild pulmonary vascular congestion, decreased when compared to prior examination. 2. Small left pleural effusion. RPTAT:AAJJ Physician Shar Date Time Electronically viewed and signed by Physician Shar on 06/24/2017 23:19 QL/
[2017-06-25] VITALS (11 sets, daily range): BP systolic 114–124; BP diastolic 65–72; PULSE 69–89; RESP 17–18
[2017-06-25] MEDS: ACCU-CHEK XX SCH (02:00)
[2017-06-25] MEDS: PANTOPRAZOLE (EC) 40 MG TAB PO SCH (05:20)
[2017-06-25] MEDS: FUROSEMIDE 40 MG INJ IV SCH (05:20)
[2017-06-25 07:14] LABS: MAGNESIUM 1.6 mg/dl (1.7-2.5); PHOSPHORUS 4.3 mg/dl (2.5-4.9)
[2017-06-25 07:16] LABS: CALCIUM 8.8 mg/dl (8.4-10.2); CREATININE 1.54 mg/dl (0.61-1.24); POTASSIUM 3.3 mmol/L (3.5-5.1)
[2017-06-25] MEDS: INSULIN ASPART [NOVOLOG] 3 ML PEN SC SCH ×2 (08:00→12:02)
[2017-06-25] MEDS ORDERED: INFLUENZA VIRUS VACCINE 0.5 ML (DISPENSING) IM* ONE (09:00)
[2017-06-25] MEDS: CLOPIDOGREL 75 MG TAB PO SCH (09:16)
[2017-06-25] MEDS: ALLOPURINOL 300 MG TAB PO SCH (09:16)
[2017-06-25] MEDS: ASPIRIN 81 MG TAB PO SCH (09:16)
[2017-06-25] MEDS: FISH OIL 1,000 MG CAP PO SCH (09:16)
[2017-06-25] MEDS: ISOSORBIDE MONONITRATE(SR)30 MG TAB PO SCH (09:16)
[2017-06-25] MEDS: NEOMYC/POLYMYX/DEXAMETH OPH 5 ML RIGHT EYE SCH (09:17)
[2017-06-25] MEDS: ENOXAPARIN 40 MG/0.4 ML SYG SC SCH (09:18)
[2017-06-25] MEDS ORDERED: POTASSIUM CHLORIDE (SR) 20 MEQ TAB PO STA (09:23)
[2017-06-25] MEDS ORDERED: MAGNESIUM SULFATE 3 GM in DEXTROSE 5% 100 ML IVPB ONE (11:00)
--- NOTE | 2017-06-25 12:35 | PN ---
Date/Time of Note Date/Time of Note DATE: 06/25/17 TIME: 12:22 Assessment/Plan VTE Prophylaxis VTE Prophylaxis Intervention: LMWH Lines/Catheters IV C[facility]ter Type (from [facility] Saline Lock Urinary Cath still in place: No Assessment/Plan Assessment/Plan 67-year-old male with: 1. Respiratory distress secondary to CHF exacerbation and possible CAP, progressive over the past 2-4 weeks, resolved now. Appreciate additional information from cardiology, 2D echocardiogram showing moderate to severe mitral regurgitation and apparently the patient has been on medical management after being evaluated at [facility] approximately 4 years ago. Ejection fraction is slightly improved to stable, EF is 30%. Patient diuresing well with stable renal function, he will be discharged home on Lasix 40 mg p.o. daily along with supplemental potassium. Levaquin for CAP 2. Possible community-acquired pneumonia with left upper lobe infiltrate on CAT scan of the chest. Plan for 5 more days of Levaquin. 3. Chronic kidney disease stage III, renal ultrasound showing signs of chronic medical disease, creatinine seems to be around 1.6 at baseline. Continue diuresis with Lasix p.o. increased dose to 40 mg p.o. daily Patient to follow-up with his outpatient sports commentator as scheduled next week. 4. Diabetes mellitus, episodes of hypoglycemia at home, A1c 6.0. Would not resume metformin. Will switch to Tradjenta, continue sliding scale insulin. 5. Coronary artery disease and severe mitral valve disease with moderate to severe mitral regurgitation, known cardiomyopathy and congestive heart failure with systolic dysfunction, EF 30%. TFTs within normal Continue current medications. Discharge home with home health RN and nurse practitioner to see. 6. Congestive heart failure, systolic dysfunction, EF 30% and moderate to severe mitral regurgitation. See #1 7. Hyperlipidemia: continue statin therapy. Fasting lipid panel within normal 8. GERD: Continue PPI Prophylaxis: PPI for GI prophylaxis, Lovenox for DVT prophylaxis Disposition: Discharge home with home health RN and nurse practitioner visit, also follow-up with cardiology and nephrology outpatient. Subjective 24 Hr Interval Summary Free Text/Dictation Patient is doing well, he is able to ambulate with no shortness of breath. Repeat chest x-ray yesterday showing small pleural effusion only, all other signs of volume overload has improved to resolved. Lower extremity edema is almost improved, he has remnants of trace edema left lower extremity. Patient understands he needs to go back up on his Lasix to 40 mg p.o. daily. He already has supplemental potassium at home. He will be discharged home today with outpatient home health RN and nurse practitioner to follow-up with him. Exam/Review of Systems Vital Signs Vitals Vital Signs Date Time Temp Pulse Resp B/P Pulse Ox O2 Delivery O2 Flow Rate FiO2 06/25/17 12:05 89 06/25/17 11:34 97.8 18 118/72 94 06/25/17 10:00 Nasal Cannula 2.0 06/23/17 11:14 21 Intake and Output 06/24/17 06/24/17 06/25/17 15:00 23:00 07:00 Intake Total 1120 ml 440 ml Output Total 750 ml 1400 ml 1600 ml Balance -750 ml -280 ml -1160 ml Exam Constitutional: alert, oriented, well developed Respiratory: clear to auscultation, normal air movement Cardiovascular: nl pulses, regular rate and rhythm Gastrointestinal: non-tender, soft Musculoskeletal: nl extremities to inspection, nl gait and stance Extremities: normal pulses, other (No clubbing or cyanosis. 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 CLINICAL INDICATION: Pulmonary edema. TECHNIQUE: PA and Lateral views of the chest were obtained. COMPARISON: Chest radiograph dated June 23, 2017. FINDINGS: There is stable cardiomegaly. Aortic calcifications are present. There is mild pulmonary vascular congestion, decreased when compared to prior examination. There is a small left pleural effusion. No focal consolidation or pneumothorax is seen. Degenerative changes of the spine and shoulder joints are present. IMPRESSION: 1. Mild pulmonary vascular congestion, decreased when compared to prior examination. 2. Small left pleural effusion. RPTAT:AAJJ Physician Shar Date Time Electronically viewed and signed by Hang Cobb Physician on 06/24/2017 23:19 PROCEDURE: US bilateral lower extremity veins. CLINICAL INDICATION: Bilateral leg pain and swelling. TECHNIQUE: Multiple longitudinal and transverse images of the bilateral lower extremity veins were obtained with grace scale and color Doppler imaging. The common femoral vein, femoral vein, and popliteal vein were evaluated. 2D grayscale measurements with compression sonography, color Doppler, and pulsed Doppler with augmentation. COMPARISON: No prior studies are available for comparison. FINDINGS: The bilateral common femoral, femoral and popliteal veins are normally compressible throughout. Color flow demonstrates normal filling of the vessels. Normal waveforms are visualized and there is normal response to augmentation. There is reflux in the right popliteal vein. IMPRESSION: 1. No evidence of deep vein thrombosis involving either lower extremity. 2. Reflux in the right popliteal vein. RPTAT: QQ .Gelacio Lorenzo MD, MD Date Time Medications Medications Current Medications Allopurinol (Zyloprim) 300 mg DAILY PO Last administered on 06/25/17 09:16; Admin Dose 300 MG; Start 06/24/17 at 09:00 Aspirin (Aspirin) 81 mg DAILY PO Last administered on 06/25/17 09:16; Admin Dose 81 MG; Start 06/24/17 at 09:00 Carvedilol (Coreg) 25 mg BID PO Last administered on 06/25/17 09:17; Admin Dose 25 MG; Start 06/23/17 at 21:00 Clopidogrel Bisulfate (plaVIX) 75 mg DAILY PO Last administered on 06/25/17 09 :16; Admin Dose 75 MG; Start 06/24/17 at 09:00 Isosorbide Mononitrate (Imdur) 30 mg DAILY PO Last administered on 06/25/17 09 :16; Admin Dose 30 MG; Start 06/24/17 at 09:00 Lorazepam (Ativan) 0.5 mg HS PRN PO ANXIETY; Start 06/23/17 at 13:30 Neomycin/ Polymyxin/ Dexamethasone (Maxitrol Oph Susp) 2 drop DAILY RIGHT EYE Last administered on 06/25/17 09:17; Admin Dose 2 DROP; Start 06/24/17 at 09: 00 Pantoprazole (Protonix Tab) 40 mg DAILY@06 PO Last administered on 06/25/17 05 :20; Admin Dose 40 MG; Start 06/24/17 at 06:00 Fish Oil (Fish Oil) 2,000 mg DAILY PO Last administered on 06/25/17 09:16; Admin Dose 2,000 MG; Start 06/24/17 at 09:00 Atorvastatin Calcium (Lipitor) 20 mg DAILY@21 PO Last administered on 20:15; Admin Dose 20 MG; Start 06/23/17 at 21:00 Ondansetron HCl (Zofran Inj) 4 mg Q6H PRN IV NAUSEA AND/OR VOMITING; Start at 13:30 Nitroglycerin (Nitroglycerin (Sl Tab) 0.4 Mg) 1 tab Q5M PRN SL CHEST PAIN; Start 06/23/17 at 13:30 Acetaminophen (Tylenol Tab) 650 mg Q6H PRN PO PAIN LEVEL 1-3 OR FEVER; Start 06/23/17 at 13:30 Acetaminophen/ Hydrocodone Bitart ([place] (5/325)) 1 tab Q6H PRN PO PAIN LEVEL 4 -6; Start 06/23/17 at 13:30 Docusate Sodium (Colace) 100 mg Q12H PRN PO CONSTIPATION; Start 06/23/17 at 13 :30 Magnesium Hydroxide (Milk Of Mag) 30 ml DAILY PRN PO CONSTIPATION; Start 06/23 at 13:30 Bisacodyl (Dulcolax Supp) 10 mg DAILY PRN MS CONSTIPATION; Start 06/23/17 at 13:30 Enoxaparin Sodium (Lovenox) 40 mg DAILY SC Last administered on 06/25/17 09:18 ; Admin Dose 40 MG; Start 06/24/17 at 09:00 Levofloxacin (Levaquin) 750 mg Q48H GTB Last administered on 06/23/17 21:30; Admin Dose 750 MG; Start 06/23/17 at 18:30 Diagnostic Test (Pha) (Accu-Chek) 1 ea 02 XX ; Start 06/24/17 at 02:00 Miscellaneous Information 1 ea NOTE XX ; Start 06/23/17 at 15:00 Glucose (Glutose) 15 gm Q15M PRN PO DECREASED GLUCOSE; Start 06/23/17 at 15:00 Glucose (Glutose) 22.5 gm Q15M PRN PO DECREASED GLUCOSE; Start 06/23/17 at 15: 00 Dextrose (D50w Syringe) 25 ml Q15M PRN IV DECREASED GLUCOSE; Start 06/23/17 at 15:00 Dextrose (D50w Syringe) 50 ml Q15M PRN IV DECREASED GLUCOSE; Start 06/23/17 at 15:00 Glucagon (Glucagen) 1 mg Q15M PRN IM DECREASED GLUCOSE; Start 06/23/17 at 15: 00 Glucose 15 gm 15 gm Q15M PRN BUCCAL DECREASED GLUCOSE; Start 06/23/17 at 15:00 Magnesium Sulfate/ Dextrose (Magnesium Sulfate/D5W) 106 ml @ 35.333 mls/ hr ONCE ONCE IVPB Last administered on 06/25/17 11:57; Admin Dose 35.333 MLS/HR ; Start 06/25/17 at 11:00; Stop 06/25/17 at 13:59 Furosemide (Lasix) 40 mg DAILY@06 PO ; Start 06/26/17 at 06:00 JUAN BERNAL Jun 25, 2017 12:32
--- NOTE | 2017-06-25 12:57 | PDOCDIS ---
Discharge Instructions CONDITION Patient Condition: Stable HOME CARE INSTRUCTIONS: Diet Instructions: 2gm NaSpecial Diet: ADA diet ACTIVITY: Activity Restrictions: No Restrictions FOLLOW UP/APPOINTMENTS Follow-up Plan Follow-up with primary care physician within 1 week Follow-up with cardiology within 2-4 weeks Follow-up with nephrology next week as previously scheduled Home health RN, nurse practitioner to see patient, arrangements to be made through [facility] case management. JUAN BERNAL Jun 25, 2017 12:57
[2017-06-25] MEDS ORDERED: FURO40TA4 PO (13:00)
[2017-06-25] MEDS ORDERED: LEVO750T25 PO (13:00)
[2017-06-25] MEDS ORDERED: LINA5TAB PO (13:00)
[2017-06-25] MEDS ORDERED: LINAGLIPTIN 5 MG TABLET PO SCH (13:30)
[2017-06-26] MEDS ORDERED: FUROSEMIDE 40 MG TAB PO SCH (06:00)
== END 2017-06-25 17:05 | disposition home health service (06) ==
LOC: E/R 09:25 → MS4 13:21
PROVIDERS: ADMIT Internal Medicine; ATTEND Internal Medicine
DX: I50.21 Acute systolic (congestive) heart failure (principal); I12.9 Hypertensive chronic kidney disease with stage 1 through stage 4 chronic kidney disease, or unspecified chronic kidney disease; N18.3 Chronic kidney disease, stage 3 (moderate); E11.649 Type 2 diabetes mellitus with hypoglycemia without coma; Z79.84 Long term (current) use of oral hypoglycemic drugs; N17.9 Acute kidney failure, unspecified; I25.10 Atherosclerotic heart disease of native coronary artery without angina pectoris; E78.5 Hyperlipidemia, unspecified
CPT/HCPCS: 36415; 71010; 71020; 71250; 76775; 80048; 80053; 80061; 82550; 82553; 82962; 83036; 83605; 83735; 83880; 84100; 84439; 84443; 84484; 85025; 87040; 87400; 90686; 93306; 93970; 94644; 94664; 96374; 96375; 99285; G0378; J0456; J0696; J1650; J1815; J1940; J3475

== ENCOUNTER 2018-06-02 14:48 | Inpatient (IN) | END 2018-06-03 15:25 | disposition home or self-care (01) | DRG 441 ==

== ENCOUNTER 2018-07-18 16:01 | Emergency (ER) | payer OTHER ==
[~2018-07-18] VITALS: Ht 170.2 cm; Wt 70.0 kg
[2018-07-18 16:01] VITALS: Ht 170.2 cm; Wt 70.0 kg
[~2018-07-18 16:01] MED LIST changes: +ALLO300T2 PO; -ALLO300T46; -AMLO-147; -ASPI-664; +ASPI-903 PO; +CARV25TA79 PO; -CLOP75TA19; +CLOP75TA27 PO; -CYAN500T46; -ESOM40CA; +ESOM40CA PO; -EZET1TAB44; -FERR28TA; -FURO40TA4; +FURO40TA4 PO; +ISOS30TA67 PO; +LINA5TAB PO; +LORA0.5T PO; -METF500T4; -METO-53; -MULT-342; -NCN500CCR; +OMEG1CAP2 PO; -POTA8TAB2; -RAMI10CA35; +SIMV40TA2 PO
[2018-07-18] MEDS ORDERED: SOD CHLORIDE 0.9% 500 ML IV STA (16:07)
[2018-07-18] MEDS ORDERED: EPINEPHRINE 4 MG in D5W 250 ML IV ONE (16:30)
[2018-07-18] MEDS ORDERED: CARV25TA79 PO (16:34)
[2018-07-18] MEDS ORDERED: CLOP75TA19 PO (16:34)
[2018-07-18] MEDS ORDERED: SIMV40TA2 PO (16:35)
[2018-07-18] MEDS ORDERED: FURO40TA4 PO (16:35)
[2018-07-18] MEDS ORDERED: BENA10TA4 PO (16:35)
[2018-07-18] MEDS ORDERED: LINA5TAB PO (16:36)
[2018-07-18] MEDS ORDERED: METF500T24 PO (16:36)
--- NOTE | 2018-07-18 16:54 | ERD ---
ER Documentation Chief Complaint Chief Complaint BIB RA IN FULL ARREST. CPR IN PROGESS HPI 68-year-old male history of diabetes, hypertension, coronary artery disease status post remote PCI ischemic cardiomyopathy brought to the ED via rescue ambulance in cardiopulmonary arrest with closed chest compressions and bag ventilations and progress. History is obtained from the patient's sons reports he is walking with his father when patient began to complain of weakness and then lost consciousness. Son initiated CPR and activated 911. Paramedics arrived patient was apneic in PEA. Accu-Chek was greater than 150 mg/dL. Chest compressions were initiated and the patient was intubated. After 2 mg epinephrine patient remained pulseless and was transported to the ED. ROS All systems reviewed and are negative except as per history of present illness. Medications Home Meds Reported Medications Linagliptin (TRADJENTA) 5 Mg Tablet, 5 MG PO DAILY, TAB 07/18/18 Metformin Hcl* (Metformin Hcl*) 500 Mg Tablet, 500 MG PO WITH BREAKFAST DINNE, #60 TAB 07/18/18 Benazepril Hcl* (Benazepril Hcl*) 10 Mg Tablet, 10 MG PO DAILY, #30 TAB 07/18/18 Simvastatin* (Zocor*) 40 Mg Tablet, 40 MG PO QHS, #30 TAB 18 Furosemide* (Furosemide*) 40 Mg Tablet, 40 MG PO BID, TAB 18 Carvedilol* (Carvedilol*) 25 Mg Tablet, 25 MG PO BID, #60 TAB 18 Clopidogrel Bisulfate* (Clopidogrel Bisulfate*) 75 Mg Tablet, 75 MG PO DAILY, #30 TAB 07/18/18 Allergies Allergies: Coded Allergies: No Known Allergy (Unverified , 07/18/18) PMhx/Soc Reviewed in chart. As per HPI. History of Surgery: Yes (ANGIOPLASTY WITH STENT PLACED) Anesthesia Reaction: No Hx Neurological Disorder: No Hx Respiratory Disorders: No Hx Cardiac Disorders: Yes (HX CHF, HTN) Hx Psychiatric Problems: No Hx Miscellaneous Medical Probl: Yes (DM) Hx Alcohol Use: Yes (IN THE PAST NOT DRINKING NOW PER DTR) Hx Substance Use: No Hx Tobacco Use: No Smoking Status: Never smoker FmHx No sudden cardiac Physical Exam Vitals Physical Exam Const: Unresponsive, GCS 3. Head: Atraumatic Eyes: Pupils midpoint and sluggishly reactive. ENT: Normal External Ears, Nose and Mouth. Neck: JVD. Resp: Breath sounds markedly diminished bilaterally with bagged ventilations. Cardio: No heart sounds Abd: Soft, non distended. Skin: No petechiae or rashes Ext: No edema Neur: GCS 3 Physical examination is limited due to the constraints imposed by the patient's clinical condition Results 24 hrs Laboratory Tests Test 07/18/18 16:07 07/18/18 16:45 Blood Gas Specimen Source Blood arterial Arterial Blood Date Drawn 07/18/2018 5:00:41 PM Arterial Blood pH (Temp corrected) 7.134 Arterial Blood pCO2 (Temp correct) 46.1 mmhg Arterial Blood pO2 (Temp corrected) 242.1 mmHG Arterial Blood HCO3 15.1 mmol/L Arterial Blood Base Excess -13.6 mmol/L Arterial Blood Oxygen Saturation 99.0 mmHG Geovanni Test N/A Arterial Blood Gas Puncture Site LB Arterial Blood Carboxyhemoglobin 0.5 % Arterial Blood Methemoglobin 0.3 % Blood Gas A-a O2 Differential 424.8 mmHg Oxyhemoglobin Percent 98.2 % Blood Gas Temperature 37.0 C Blood Gas Respiration Rate 16.0 Blood Gas Actual Respiration Rate 24 Blood Gas Modality VENT - AC FiO2 100.0 % Blood Gas Tidal Volume 500.0 mL Blood Gas Critical Value Read Back MD LORE Blood Gas Notified Whom KS Blood Gas Notified Time 07/18/2018 5:08:44 PM White Blood Count 6.1 10^3/ul Red Blood Count 3.59 10^6/ul Hemoglobin 10.9 g/dl Hematocrit 36.5 % Mean Corpuscular Volume 101.7 fl Mean Corpuscular Hemoglobin 30.4 pg Mean Corpuscular Hemoglobin Concent 29.9 g/dl Red Cell Distribution Width 16.9 % Platelet Count 51 10^3/UL Mean Platelet Volume 12.8 fl Immature Granulocytes % 8.400 % Neutrophils % % Segmented Neutrophils % (Manual) 58 % Band Neutrophils % (Manual) 7 % Lymphocytes % % Lymphocytes % (Manual) 24 % Monocytes % % Monocytes % (Manual) 2 % Eosinophils % % Eosinophils % (Manual) 3 % Basophils % % Basophils % (Manual) 1 % Metamyelocytes % (manual) 2 % Myelocytes % (Manual) 3 % Nucleated Red Blood Cells % 2 % Immature Granulocytes # 0.510 10^3/ul Neutrophils # 10^3/ul Neutrophils # (Manual) 3.6 10^3/ul Band Neutrophils # 0.4 10^3/ul Lymphocytes (Manual) 1.4 10^3/ul Lymphocytes # 10^3/ul Monocytes # 10^3/ul Monocytes # (Manual) 0.1 10^3/ul Eosinophils # 10^3/ul Basophils # 10^3/ul Basophils # (Manual) 0.0 10^3/ul Metamyelocytes # 0.1 10^3/ul Myelocytes # 0.1 10^3/ul Nucleated Red Blood Cells # 10^3/ul Platelet Estimate DECREASED Polychromasia 3+ Poikilocytosis 3+ Anisocytosis 2+ Macrocytosis 1+ Sodium Level 138 mmol/L Potassium Level 3.3 mmol/L Chloride Level 108 mmol/L Carbon Dioxide Level 15 mmol/L Anion Gap 15 Blood Urea Nitrogen 61 mg/dl Creatinine 1.78 mg/dl Est Glomerular Filtrat Rate mL/min 38 mL/min Glucose Level 236 mg/dl Calcium Level 8.4 mg/dl Total Bilirubin 0.5 mg/dl Direct Bilirubin 0.00 mg/dl Indirect Bilirubin 0.5 mg/dl Aspartate Amino Transf (AST/SGOT) 59 IU/L Alanine Aminotransferase (ALT/SGPT) 29 IU/L Alkaline Phosphatase 110 IU/L Troponin I 0.224 ng/ml Total Protein 5.3 g/dl Albumin 2.7 g/dl Globulin 2.60 g/dl Albumin/Globulin Ratio 1.03 Current Medications Medications Dose Sig/Rob Start Time Status Last (Trade) Ordered Route PRN Stop Time Admin Dose Reason Admin Sodium 500 ml @ Q1H STAT 07/18/18 DC 07/18/18 Chloride 500 mls/hr IV 16:07 16:01 07/18/18 17:06 Epinephrine 250 ml @ ONCE ONCE 07/18/18 DC 07/18/18 4 mg/ 3.75 mls/hr IV 16:30 17:07 Dextrose 07/18/18 18:00 Procedures/MDM DOCUMENTS REVIEWED: ED nurse, prior records LAB INTERPRETATION: 17:05. ABG. PH 7.134 PCO2 46 PO2 242 IMAGING: AP portable: Cardiomegaly with bilateral interstitial infiltrates consistent with congestive heart failure and pulmonary edema. ET tube in satisfactory position above the siobhan. No pneumothorax. ED COURSE: Refer to the resuscitation documentation flowsheet CRITICAL CARE TIME: Due to the high probability of sudden clinically significant hemodynamic, cardiovascular, respiratory and neurologic deterioration, this patient with cardiac arrest and intermittent ROSC required continuous bedside management. Additional critical care time was spent in review of prior medical records, interpretation of relevant clinical data as well as arranging for transfer to [facility]. TOTAL CRITICAL CARE TIME: 40 minutes not including other separately reportable procedures. MEDICAL DECISION MAKIN-year-old male history of diabetes, hypertension, coronary artery disease status post remote PCI ischemic cardiomyopathy brought to the ED via rescue ambulance in cardiopulmonary arrest with closed chest compressions and bag ventilations and progress. On arrival CPR initiated as per ACLS protocol. High quality chest compressions with minimal interruptions and after an additional 1 mg of epinephrine pulses were restored temporarily. Multiple rounds of epinephrine, atropine, calcium and bicarb were given. Intermittent ROSC with deterioration PEA and bradycardia requiring ongoing chest compressions CPR and vasopressors. Multiple EKGs were performed revealing intermittent sinus rhythm, heart block, ventricular escape rhythm and left bundle branch block with Sgarbossa criteria for ST segment elevation myocardial infarction. Family present during the entire resuscitation. Despite extensive counseling regarding the futility of continuing resuscitative efforts including permanent neurologic deficit, family is insistent on all available interventions. Patient will require emergent cardiology consultation, left heart cath, possible PCI and pacemaker which is currently unavailable at this institution. Family understands the critical nature of the patient's condition and possibility that he may not survive the transfer. Transfer to [facility] via [address] Nichols accepting. Departure Diagnosis: Primary Impression: Cardiac arrest Additional Impression: Signs of return of spontaneous circulation Condition: Critical EVA AVELAR MD Jul 18, 2018 16:54
[2018-07-18 17:05] VITALS: BP 82/58; PULSE 80; RESP 20
== END 2018-07-18 18:00 | disposition short-term general hospital (02) ==
LOC: E/R 16:01
DX: I46.9 Cardiac arrest, cause unspecified (principal); I46.2 Cardiac arrest due to underlying cardiac condition; E11.9 Type 2 diabetes mellitus without complications; I25.10 Atherosclerotic heart disease of native coronary artery without angina pectoris; I10 Essential (primary) hypertension; Z79.01 Long term (current) use of anticoagulants; Z79.84 Long term (current) use of oral hypoglycemic drugs; Z98.61 Coronary angioplasty status
CPT/HCPCS: 31500; 36415; 36600; 71045; 80053; 82803; 84484; 85025; 92950; 93005; 94002; 96374; 99291; J0171; J7040; J7070